=== PATIENT | male | born 2000 | race Hispanic/Latino ===

== ENCOUNTER 2024-03-17 20:38 | Emergency (ER) | payer OTHER ==
--- NOTE | 2024-03-17 21:15 | RAD REPORT ---
EXAM DESCRIPTION: RAD - Chest Single View - 03/17/2024 9:04 pm CLINICAL HISTORY: dizziness Chest pain. COMPARISON: No comparisons FINDINGS: Portable technique limits examination quality. The lungs are grossly clear. The heart is normal in size. No displaced fractures. IMPRESSION: No acute intrathoracic process suspected.
[2024-03-17] MEDS ORDERED: NA CHLORIDE 0.9% 1,000 ML ONE (21:30)
[2024-03-17 21:43] LABS: Absolute Basophils 0.1 K/uL (0-0.5); Absolute Lymphocytes (CBC) 1.3 K/uL (0.7-4.9); Absolute Monocytes 0.9 K/uL (0.1-1.3); Absolute Neutrophil 6.1 K/uL (1.8-8.0); Basophils % 0.9 % (0-1.3); Eosinophils % 0.3 % (0-4.4); Hematocrit 45.1 % (39.6-49.0); Hemoglobin 15.5 g/dL (13.6-17.9); Lymphocytes % 15.3 % (15.3-44.8); MCH 31.8 pg (27.0-35.0); MCHC 34.4 g/dL (32.0-36.0); MCV 92.4 fL (80-100); MPV 9.1 fL (7.6-11.3); Monocytes % 10.3 % (3.3-12.3); Neutrophils % 73.2 % (41.7-73.7); Nucleated Red Blood Cells % 0.1 % (0-0); Platelets 230 thou/uL (152-406); RBC Red Blood Cell Count 4.88 M/uL (4.33-5.43); Red Cell Distribution Width 12.8 % (12.1-15.2)
--- NOTE | 2024-03-17 21:45 | RAD REPORT ---
EXAM DESCRIPTION: CT - Head Brain Wo Cont - 03/17/2024 9:37 pm CLINICAL HISTORY: DIZZINESS Headache, drowsiness COMPARISON: No comparisons TECHNIQUE: All CT scans are performed using dose optimization technique as appropriate and may inclu de automated exposure control or mA/KV adjustment according to patient size. FINDINGS: No intracranial hemorrhage, hydrocephalus or extra-axial fluid collection.Streak artifact is present along the left posterior calvarium, limiting assessment of the posterior fossa and brain p arenchyma at the level of the skullbase.No areas of brain edema or evidence of midline shift. The paranasal sinuses and mastoids are clear. The calvarium is intact. IMPRESSION: No acute intracranial abnormality. Streak artifact is present limiting quality of the s tudy.
[2024-03-17 22:12] LABS: Albumin 4.8 g/dL (3.4-5.0); Albumin/Globulin Ratio 1.5 (1.1-1.8); Anion Gap 8.4 mEq/L (5.0-15.0); Bilirubin Direct 0.4 mg/dL (0-0.2); Bilirubin Indirect, Calculated 3.2 mg/dL (0.2-0.8); Bilirubin Total 3.6 mg/dL (0.2-1.0); Globulin 3.3 g/dL (2.3-3.5); Potassium 3.4 mEq/L (3.5-5.1); Protein, Total 8.1 g/dL (6.4-8.2); Troponin High Sensitivity 20.5 pg/mL (<58.9)
[2024-03-17] MEDS ORDERED: MECLIZINE HCL 12.5 MG TAB ONE (23:13)
[2024-03-18] MEDS ORDERED: POTASSIUM 25 MEQ EFFERV TAB ONE (00:04)
--- NOTE | 2024-03-18 00:06 | EDPHYS ---
Physician Documentation [facility] Name: David Villanueva Age: 24 yrs Sex: Male : 2000 Arrival Date: 03/17/2024 Time: 20:38 Bed 17 Private MD: ED Physician Praveen West HPI: 03/17 21:00 This 24 yrs old Male presents to ER via EMS with complaints of Dizziness, cp Decreased Appetite - x5days. 21:00 The patient presents with dizziness, feeling faint, lightheadedness, a sense of cp confusion. Onset: The symptoms/episode began/occurred today. Context: occurred at home, decreased appetite times 5 days, weight loss. Associated signs and symptoms: Pertinent negatives: abdominal pain, chest pain, focal weakness, head injury, headache, numbness, palpitations, seizure, shortness of breath, syncope. Severity of symptoms: in the emergency department the symptoms are unchanged despite EMS interventions. Patient's baseline: Neuro: alert and fully oriented, Motor: no deficits, Ambulation: walks without assistance, Speech: normal. Historical: - Allergies: 21:23 No Known Allergies; as6 - PMHx: 21:23 None; as6 - PSHx: 21:23 None; as6 - Immunization history:: Adult Immunizations up to date. - Infectious Disease History:: Denies. - Social history:: Smoking status: Patient denies any tobacco usage or history of. ROS: 21:05 Constitutional: Positive for weight loss, Negative for body aches, chills, fever, poor cp PO intake, 21:05 Eyes: Negative for injury, pain, redness, and discharge, cp 21:05 ENT: Negative for drainage from ear(s), ear pain, sore throat, difficulty swallowing, difficulty handling secretions, 21:05 Cardiovascular: Negative for chest pain, edema, palpitations, 21:05 Respiratory: Negative for cough, shortness of breath, wheezing, 21:05 Abdomen/GI: Positive for decreased appetite, Negative for abdominal pain, vomiting, diarrhea, constipation, 21:05 Neuro: Positive for dizziness, weakness, Negative for altered mental status, headache, numbness, syncope, 21:05 All other systems are negative, Exam: 21:10 Constitutional: The patient appears in no acute distress, alert, awake, cp non-diaphoretic, non-toxic, well developed, well nourished, 21:10 Head/Face: Normocephalic, atraumatic. cp 21:10 Eyes: Periorbital structures: appear normal, Pupils: equal, round, and reactive to light and accomodation, Extraocular movements: intact throughout, Conjunctiva: normal, no exudate, no injection, Sclera: no appreciated abnormality, Lids and lashes: appear normal, bilaterally, 21:10 ENT: External ear(s): are unremarkable, Nose: is normal, Mouth: Lips: moist, Oral mucosa: pink and intact, moist, Posterior pharynx: Airway: no evidence of obstruction, patent, erythema, is not appreciated, exudate, is not appreciated, 21:10 Neck: ROM/movement: is normal, is supple, without pain, no range of motions limitations, no meningismus, no nuchal rigidity, 21:10 Chest/axilla: Inspection: normal, 21:10 Cardiovascular: Rate: normal, Rhythm: regular, Edema: is not appreciated, JVD: is not appreciated, 21:10 Respiratory: the patient does not display signs of respiratory distress, Respirations: normal, no use of accessory muscles, no retractions, labored breathing, is not present, Breath sounds: are clear throughout, no decreased breath sounds, no stridor, no wheezing, 21:10 Abdomen/GI: Inspection: abdomen appears normal, Bowel sounds: active, all quadrants, Palpation: abdomen is soft and non-tender, in all quadrants, 21:10 Back: pain, is absent, ROM is normal, 21:10 Neuro: Orientation: to person, place \T\ time. Mentation: able to follow commands, slow to respond, Motor: moves all fours, no focal deficits, Sensation: no obvious gross deficits, 21:10 Psych: Behavior/mood is cooperative, Affect is flat, Patient has no thoughts/intents to harm self or others. Judgement / Insight is normal. Delusions/hallucinations are not present. Vital Signs: 21:22 BP 136 / 88; Pulse 68; Resp 18 S; Temp 98.3(TE); Pulse Ox 100% on R/A; Weight 54.43 kg as6 (R); Height 5 ft. 7 in. (R); Pain 0/10; 22:34 BP 128 / 79; Pulse 55; Resp 16; Pulse Ox 100% ; jj7 23:30 BP 131 / 70; Pulse 68; Resp 80; Pulse Ox 99% ; Pain 0/10; jj7 03/18 00:33 BP 120 / 77; Pulse 69; Resp 20; Temp 97.3; Pulse Ox 98% ; Pain 0/10; jj7 03/17 21:22 Body Mass Index 18.79 (54.43 kg, 170.18 cm) as6 03/17 21:22 Pain Scale: Adult as6 23:30 Pain Scale: Adult jj7 03/18 00:33 Pain Scale: Adult jj7 MDM: 03/17 21:00 Differential diagnosis: cardiac arrhythmia, CVA, generalized weakness, head injury, cp hypovolemia, idiopathic dizziness, TIA. 03/18 00:05 Data reviewed: vital signs, nurses notes, lab test result(s), EKG, radiologic studies, cp CT scan, plain films. 00:05 I considered the following discharge prescriptions or medication management in the emergency department Medications were administered in the Emergency Department. See MAR. Independent interpretation of the following test(s) in the Emergency Department EKG: See my EKG interpretation above. Counseling: I had a detailed discussion with the patient and/or guardian regarding the historical points, exam findings, and any diagnostic results supporting the discharge/admit diagnosis, lab results, radiology results, to return to the emergency department if symptoms worsen or persist or if there are any questions or concerns that arise at home. Response to treatment: the patient's symptoms have markedly improved after treatment, patient is well hydrated. and as a result, I will discharge patient. 00:06 Patient medically screened. 03/17 20:47 Order name: Basic Metabolic Panel; Complete Time: 23:59 cp 03/17 23:59 Interpretation: Normal except: K 3.4. cp 03/17 20:47 Order name: CBC with Diff; Complete Time: 23:59 cp 03/17 20:47 Order name: LFT's; Complete Time: 23:59 cp 03/17 23:59 Interpretation: Normal except: BILIT 3.6; BILID 0.4; IBILI, CALC 3.2. 03/17 20:47 Order name: Magnesium; Complete Time: 23:59 cp 03/17 20:47 Order name: Troponin HS; Complete Time: 23:59 cp 03/17 20:47 Order name: XRAY Chest (1 view); Complete Time: 23:59 cp 03/17 20:47 Order name: CT Head Brain wo Cont; Complete Time: 23:59 cp 03/17 20:47 Order name: EKG; Complete Time: 20:47 cp 03/17 20:47 Order name: Cardiac monitoring; Complete Time: 22:30 cp 03/17 20:47 Order name: EKG - Nurse/Tech; Complete Time: 22:38 cp 03/17 20:47 Order name: IV Saline Lock; Complete Time: 21:28 cp 03/17 20:47 Order name: Labs collected and sent; Complete Time: 21:28 cp 03/17 20:47 Order name: O2 Per Protocol; Complete Time: 22:30 cp 03/17 20:47 Order name: O2 Sat Monitoring; Complete Time: 22:30 cp Administered Medications: 03/17 21:33 Drug: NS 0.9% IV 1000 ml IV at 1 bolus Per protocol; 1000 mL bolus Route: IV; Rate: 1 as6 bolus; Site: right antecubital; 23:00 Follow up: IV Status: Completed infusion jj7 23:20 Drug: Meclizine PO 25 mg PO once Route: PO; jj7 03/18 00:40 Follow up: Response: Marked relief of symptoms jj7 00:18 Drug: Potassium PO Effervescent Tablet 25 mEq PO once; dissolve in 4 ounces of water or jj7 juice Route: PO; 00:40 Follow up: Response: No adverse reaction jj7 Disposition: 23:24 Co-signature as Attending Physician, Praveen West MD I agree with the assessment sp4 and plan of care. I reviewed the patient's care provided by the Advanced Practice Provider and agree with the diagnosis and treatment plan. Disposition Summary: 03/18/24 00:06 Discharge Ordered Notes: Location: Home cp Problem: new cp Symptoms: have improved cp Condition: Stable cp Diagnosis - Dizziness and giddiness cp Followup: cp - With: Private Physician - When: 2 - 3 days - Reason: Recheck today's complaints Discharge Instructions: - Discharge Summary Sheet cp - Dizziness cp Forms: - Work release form bd - Medication Reconciliation Form cp - Antibiotic Education cp - Prescription Opioid Use cp - Patient Portal Instructions cp - Leadership Thank You Letter cp Prescriptions: - Meclizine 25 mg Oral Tablet - take 1 tablet ORAL route every 8 hours As needed; 30 tablet; Refills: 0, cp Product Selection Permitted Signatures: Dispatcher [employer] EDMS Guanakito Gipson PA PA cp Karri Martel RN RN as6 Chaz Carpenter RN RN jj7 Praveen West MD MD sp4 Corrections: (The following items were deleted from the chart) 03/17 20:47 20:47 Head Brain Wo Cont+CT.RAD.BRZ ordered. EDMS EDMS 03/18 00:07 00:06 Anorexia cp cp
--- NOTE | 2024-03-18 00:06 | ER ---
Nurse's Notes [facility] Name: David Villanueva Age: 24 yrs Sex: Male : 2000 Arrival Date: 03/17/2024 Time: 20:38 Bed 17 Private MD: Diagnosis: Dizziness and giddiness Presentation: 03/17 20:40 Chief complaint: EMS states: Used vape with nicotine got nauseous and threw up. Hasn't vc1 ate in 3 days. 20:40 Method Of Arrival: EMS: [facility] vc1 21:23 Chief complaint: Patient states: pt states he hasn't been eating and when he hit his as6 girlfriends vape he started vomiting and had a syncopal episode. Coronavirus screen: At this time, the client does not indicate any symptoms associated with coronavirus-19. Ebola Screen: No symptoms or risks identified at this time. Initial Sepsis Screen: Does the patient meet any 2 criteria? No. Patient's initial sepsis screen is negative. Does the patient have a suspected source of infection? No. Patient's initial sepsis screen is negative. Risk Assessment: Do you want to hurt yourself or someone else? Patient reports no desire to harm self or others. Onset of symptoms was March 17, 2024. 21:23 Acuity: CLAIRE 3 as6 Triage Assessment: 21:24 General: Appears in no apparent distress. slender, Behavior is calm, cooperative. Pain: as6 Denies pain. Historical: - Allergies: 21:23 No Known Allergies; as6 - PMHx: 21:23 None; as6 - PSHx: 21:23 None; as6 - Immunization history:: Adult Immunizations up to date. - Infectious Disease History:: Denies. - Social history:: Smoking status: Patient denies any tobacco usage or history of. Screenin:32 [facility] ED Fall Risk Assessment (Adult) History of falling in the last 3 months, jj7 including since admission No falls in past 3 months (0 pts) Confusion or Disorientation No (0 pts) Intoxicated or Sedated No (0 pts) Impaired Gait No (0 pts) Mobility Assist Device Used No (0 pt) Altered Elimination No (0 pt) Score/Fall Risk Level 0 - 2 = Low Risk Oriented to surroundings, Maintained a safe environment, Educated pt \T\ family on fall prevention, incl call for assistance when getting out of bed. Abuse screen: Denies threats or abuse. Nutritional screening: No deficits noted. Tuberculosis screening: No symptoms or risk factors identified. Assessment: 22:32 General: Appears in no apparent distress. comfortable, Behavior is calm, cooperative, jj7 appropriate for age. Pain: Denies pain. Neuro: Reports weakness. Musculoskeletal: Reports weakness in right leg and left leg. Vital Signs: 21:22 BP 136 / 88; Pulse 68; Resp 18 S; Temp 98.3(TE); Pulse Ox 100% on R/A; Weight 54.43 kg as6 (R); Height 5 ft. 7 in. (R); Pain 0/10; 22:34 BP 128 / 79; Pulse 55; Resp 16; Pulse Ox 100% ; jj7 23:30 BP 131 / 70; Pulse 68; Resp 80; Pulse Ox 99% ; Pain 0/10; jj7 03/18 00:33 BP 120 / 77; Pulse 69; Resp 20; Temp 97.3; Pulse Ox 98% ; Pain 0/10; jj7 03/17 21:22 Body Mass Index 18.79 (54.43 kg, 170.18 cm) as6 03/17 21:22 Pain Scale: Adult as6 23:30 Pain Scale: Adult jj7 03/18 00:33 Pain Scale: Adult jj7 ED Course: 03/17 20:40 Patient arrived in ED. vc1 20:40 Praveen West MD is Attending Physician. sp4 20:44 Guanakito Gipson PA is PHCP. cp 21:06 XRAY Chest (1 view) In Process Unspecified. EDMS 21:23 Arm band placed on. as6 21:24 Triage completed. as6 21:28 Troponin HS Sent. as6 21:28 Magnesium Sent. as6 21:29 Basic Metabolic Panel Sent. as6 21:29 CBC with Diff Sent. as6 21:29 LFT's Sent. as6 21:33 Inserted saline lock: 20 gauge in right antecubital area, using aseptic technique. as6 Blood collected. 21:39 CT Head Brain wo Cont In Process Unspecified. EDMS 22:32 Chaz Carpenter RN is Primary Nurse. jj7 22:32 Patient has correct armband on for positive identification. Bed in low position. Call jj7 light in reach. Provided Education on: USE OF CALL MACHADO. Client placed on continuous cardiac and pulse oximetry monitoring. NIBP monitoring applied. telemetry monitor on. 22:38 No provider procedures requiring assistance completed. EKG done, by ED staff, reviewed pf1 by Guanakito LEHMAN. 03/18 00:33 IV discontinued, intact, bleeding controlled, No redness/swelling at site. Pressure jj7 dressing applied. Administered Medications: 03/17 21:33 Drug: NS 0.9% IV 1000 ml IV at 1 bolus Per protocol; 1000 mL bolus Route: IV; Rate: 1 as6 bolus; Site: right antecubital; 23:00 Follow up: IV Status: Completed infusion jj7 23:20 Drug: Meclizine PO 25 mg PO once Route: PO; jj7 03/18 00:40 Follow up: Response: Marked relief of symptoms jj7 00:18 Drug: Potassium PO Effervescent Tablet 25 mEq PO once; dissolve in 4 ounces of water or jj7 juice Route: PO; 00:40 Follow up: Response: No adverse reaction jj7 Medication: 03/17 22:32 VIS not applicable for this client. jj7 Outcome: 03/18 00:06 Discharge ordered by . marquise 00:33 Discharged to home ambulatory, with friend, jKendall 00:33 Condition: improved 00:33 Discharge instructions given to patient, Instructed on discharge instructions, medication usage, Demonstrated understanding of instructions, medications, Prescriptions given X 1, 00:33 Patient left the ED. jj7 Signatures: Dispatcher [employer] EDMS Guanakito Gipson PA PA cp Slawson, Ashby, RN RN as6 Gianna Bustamante RN RN 1 Chaz Carpenter RN RN jj7 Sofia Cruz RN RN pf1 Praveen West MD MD sp4 Corrections: (The following items were deleted from the chart) 00:42 00:41 Patient left the ED. jj7 jj7
[2024-03-18 01:17] VITALS: BP 120/77; TEMP 97.3; O2SAT 98
--- NOTE | 2024-03-18 13:06 | EKG ---
Test Date: 2024-03-17 Test Time: 22:35:15 Billing Specialist: KRAIG MEASUREMENT RESULTS: Intervals: Rate: 52 [place]: 170 QRSD: 80 QT: 436 QTc: 405 [place]: P: 42 NJ: 170 QRS: 98 T: 48 INTERPRETIVE STATEMENTS: Sinus bradycardia with sinus arrhythmia Otherwise normal ECG No previous ECG available for comparison Electronically Signed On 03-18-24 13:05:17 CDT by Saman Pierre
== END 2024-03-18 00:41 | disposition home or self-care (01) ==
LOC: ER 20:38
DX: R42 Dizziness and giddiness (principal); R53.1 Weakness
CPT/HCPCS: 93005; 85025; 80048; 36415; 83735; 80076; 84484; 70450; 71045; J8597; J7030; 96360; 99285